=== PATIENT | male | born 1975 | race Caucasian/White ===

== ENCOUNTER 2019-12-26 00:30 | Day surgery (SDC) | payer MEDICARE, SELFPAY ==
[2019-12-26] MEDS: LACTATED RINGERS 1,000 ML 150 ML IV CONT (07:05)
[2019-12-26 07:06] VITALS: BP 137/86; PULSE 89; RESP 16; TEMP 36.4; O2SAT 99; BMI 28.8
--- NOTE | 2019-12-26 07:22 | WPDGICN ---
Assessment and Plan Additional Plan This is a 44-year-old white male patient seen in evaluation at the request of Dr. Mullins. Patient complains of ongoing abdominal pain. Symptoms have worsened recently. He notices pain primarily in the left upper quadrant. Pain occurs intermittently. Over the last several weeks has noticed dark blood in his stools. This has occurred over the last 3-4 weeks. Patient has empirically tried pantoprazole or with the last year with no change in his pain. Past medical history is significant for ADHD. He has a history of a spinal surgery, with a spinal cage 14 years ago. Because of pain in EGD was recommended 1 year ago this has not yet been accomplished. Family history is significant that his sister had breast cancer. Father had diabetes mellitus. He was exposed to Agent [place]. A nephew is had leukemia. Current medications include dextroamphetamine. Gabapentin. Hydrocortisone. Social history is significant for rather frequent alcohol intake. Physical exam reveals Vital Signs to be stable. HEENT exam unremarkable. Lungs are clear to auscultation and percussion. Heart is without murmur or extra sounds. Abdominal exam reveals tenderness perhaps a fullness in the right lower mid abdomen. He is tender in the right upper quadrant. Impression 1. Lower GI bleeding. 2. Epigastric and right upper quadrant pain. 3. Right abdominal fullness. Plan is to evaluate further with colonoscopy an EGD. CBC in complete metabolic panel obtained in the office are unremarkable. Continue trial of pantoprazole appears appropriate for the immediate future. GI Consult Note Consult date/time: 12/26/19 07:22 HPI: Brandon Matute is a 44 year old male [facility] Family History Family History (Updated 06/20/16 @ 23:19 by DOCTOR UNKNOWN) Father Hypertension Family history of diabetes mellitus in first degree relative Cerebrovascular accident Mother Hypertension Family history of rheumatoid arthritis Sibling Hypertension Family history of diabetes mellitus in first degree relative Other Family history of coronary artery disease Family history of malignant neoplasm Social History Social History Smoking status: Never smoker Second hand tobacco smoke exposure: No Alcohol intake: current Meds Home Medications and Allergies Home Medications Medication Instructions Recorded Confirmed Type dextroamphetamine-amphetamine 10 mg PO QNOON 12/20/19 12/20/19 History dextroamphetamine-amphetamine 20 mg PO BID 12/20/19 12/20/19 History gabapentin 900 mg PO HS 12/20/19 12/20/19 History hydrocodone-acetaminophen 1 tablet PO QID 12/20/19 12/20/19 History Allergies Allergy/AdvReac Type Severity Reaction Status Date / Time No Known Allergies Allergy Verified 12/26/19 06:48 Vital Signs Vital Signs - 24 hr 12/26/19 07:06 Temperature 36.4 C Pulse Rate 89 Respiratory Rate 16 Blood Pressure 137/86 Pulse Oximetry 99
--- NOTE | 2019-12-26 07:31 | WPDANESEPPF ---
Anes - Initial Pre Proc Eval Procedure: Operation Date: 12/26/19 08:00 Proposed Procedures p Esophagogastroduodenoscopy & Colonoscopy - Vlad Calderón MD Date/Time: 12/26/19 07:31 Surgeon: Vlad Calderón MD Pre Op Diagnosis: GI bleed, epigastric pain Patient Data Age: 44 Gender: M Height: 5 ft 5 in Weight: 78.4 kg Last Vital Signs Temp 36.4 C 12/26/19 07:06 Pulse 89 12/26/19 07:06 Resp 16 12/26/19 07:06 BP 137/86 12/26/19 07:06 Pulse Ox 99 12/26/19 07:06 Allergies Allergy/AdvReac Type Severity Reaction Status Date / Time No Known Allergies Allergy Verified 12/26/19 06:48 Home Medications Medication Instructions Recorded Confirmed Type dextroamphetamine-amphetamine 10 mg PO QNOON 12/20/19 12/20/19 History dextroamphetamine-amphetamine 20 mg PO BID 12/20/19 12/20/19 History gabapentin 900 mg PO HS 12/20/19 12/20/19 History hydrocodone-acetaminophen 1 tablet PO QID 12/20/19 12/20/19 History Patient hx anesthesia problems: none Family hx anesthesia problems: none PMFSH Past Medical History Medical History (Updated 12/26/19 @ 07:32 by Jonah Bowser MD) Chronic back pain Extensive facial fractures SHIELA (obstructive sleep apnea) Surgical History Surgical History (Updated 12/26/19 @ 07:32 by Jonah Bowser MD) H/O sinus surgery History of lumbar fusion Family History Family History Father Hypertension Family history of diabetes mellitus in first degree relative Cerebrovascular accident Mother Hypertension Family history of rheumatoid arthritis Sibling Hypertension Family history of diabetes mellitus in first degree relative Other Family history of coronary artery disease Family history of malignant neoplasm Social History Social History Smoking status: Never smoker Second hand tobacco smoke exposure: No Alcohol intake: current Anes - Eval Final PreProcedure Day of Procedure 12/26/19 07:31 Patient weight: normal Heart: regular rate and rhythm Lungs: clear to auscultation Airway: Mallampati scale class II Neurological: alert and oriented Last oral intake: >/= 8 hours ASA classification: III Anesthetic plan: proceed Anesthesia type and monitoring: general GIVS and standard monitoring Informed Consent: The patient's anesthetic plan and its attendant risks and benefits were discussed with the patient/family/POA. Questions were solicited and answers provided to the satisfaction of the patient/family/POA.
[2019-12-26] MEDS: BENZOCAINE (*SP) 60 ML SPRAY CAN (HURRICAINE) 1 SPRAY MUCOUS MEM (08:00)
[2019-12-26 08:22] VITALS: BP 114/72; PULSE 84; RESP 16; O2SAT 100
[2019-12-26 08:32] VITALS: BP 119/75; PULSE 73; RESP 18; O2SAT 100
[2019-12-26 08:42] VITALS: BP 111/72; PULSE 73; RESP 18; O2SAT 100
[2019-12-26 08:52] VITALS: BP 117/74; PULSE 74; RESP 18; O2SAT 99
== END 2019-12-26 09:09 | disposition home or self-care (01) ==
PROVIDERS: PCP Family Medicine; Visit Provider Internal Medicine Gastroenterology
PROC: 0DJ08ZZ Inspection of Upper Intestinal Tract, Via Natural or Artificial Opening Endoscopic (ICD-10-PCS; CPT 43235; principal; 2019-12-26 08:00)
DX: R10.13 Epigastric pain (principal); R10.11 Right upper quadrant pain; F90.9 Attention-deficit hyperactivity disorder, unspecified type; G47.33 Obstructive sleep apnea (adult) (pediatric); M54.9 Dorsalgia, unspecified; G89.29 Other chronic pain; Z98.1 Arthrodesis status; Z79.891 Long term (current) use of opiate analgesic
CPT/HCPCS: 43239; J2704; J7120

== ENCOUNTER 2020-01-17 14:32 | Outpatient (CLI) | payer MEDICARE, SELFPAY ==
[2020-01-17 14:58] LABS: Hematocrit 46.5 % (42.0-52.0); Mean Corpuscular HGB Conc 34.4 g/dl (32-36); Mean Corpuscular Hemoglobin 30.5 pg (26-34); Mean Corpuscular Volume 88.7 fl (80-100); Mean Platelet Volume 8.9 fl (7.4-10.4); Platelet Count Result 245 k/mm3 (150-375); Red Blood Count 5.24 M/mm3 (4.6-6.20); Red Cell Distribution Width 11.9 % (11.5-14.5); White Blood Count 7.6 K/mm3 (4.5-10.0)
[2020-01-17 15:10] LABS: Alanine Aminotransferase 70 U/L (4-50); Albumin Level 4.7 g/dL (3.5-5.1); Alkaline Phosphatase 56 U/L (38-126); Aspartate Amino Transferase 51 U/L (17-59); Bilirubin,Total 0.6 mg/dL (0.2-1.3); Blood Urea Nitrogen 14 mg/dL (9-20); Calcium 9.7 mg/dL (8.4-10.2); Carbon Dioxide 30 mmol/L (22-30); Chloride 99 mmol/L (98-107); Estimated Glomerular Filt Rate 44; Glucose 92 mg/dL (75-110); Potassium 4.1 mmol/L (3.4-5.0); Sodium 140 mmol/L (137-145)
== END 2020-01-17 14:33 | disposition home or self-care (01) ==
PROVIDERS: PCP Family Medicine; Visit Provider Internal Medicine Gastroenterology
DX: K92.2 Gastrointestinal hemorrhage, unspecified (principal)
CPT/HCPCS: 36415; 80053; 85027

== ENCOUNTER 2020-01-18 07:34 | Outpatient (CLI) | payer MEDICARE, SELFPAY ==
--- NOTE | ~2020-01-18 | US_ITS ---
EXAMINATION: US right upper quadrant DATE: 01/18/2020 08:24 INDICATION: Abdominal pain. TECHNIQUE: Multiple grayscale and Doppler ultrasound images of the abdomen were obtained. COMPARISON: CT abdomen and pelvis 01/13/2019 FINDINGS: The visualized portions of the head and body of the pancreas are normal. The liver is yobani l without focal lesion. There is normal flow in main portal vein. The gallbladder is normal in size. No gallstones or gallbladder wall thickening. There was no sonographic Antoine sign. The common duct i s normal and measures 4 mm. IMPRESSION: 1. Normal right upper quadrant ultrasound. Reviewed, dictated and finalized at location A. 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
== END 2020-01-18 07:35 | disposition home or self-care (01) ==
LOC: ANHIMG 07:35
PROVIDERS: PCP Family Medicine; Visit Provider Nurse Practitioner Family
DX: R10.9 Unspecified abdominal pain (principal)
CPT/HCPCS: 76705

== ENCOUNTER 2020-02-16 07:38 | Outpatient (CLI) | payer MEDICARE, SELFPAY ==
--- NOTE | ~2020-02-16 | US_ITS ---
US abdomen complete EXAMINATION: US Abdomen Complete INDICATION: Abdominal pain PROCEDURE: Realtime High Resolution abdomen ultrasound. COMPARISON: 01/18/2020 FINDINGS: Gallbladder within normal limits. No gallstones, pericholecystic fluid, gallbladder wall t hickening or biliary dilatation. Common bile duct measures 4 mm. Liver echotexture within normal limits without focal mass. Pancreas within normal limits. Pancreati c tail is obscured by bowel gas. Spleen is unremarkeable. Renal echotexture is within normal limits bilaterally without hydronephrosis, contour deforming mass or renal stone. Right kidney measures 11.6 cm. Left kidney measures 10.4 cm. Visualized aspects of the aorta and IVC are within normal limits. Portal vein is patent. No sonograph ic Antoine's sign indicated by the technologist. IMPRESSION: 1: Normal abdominal ultrasound. Reviewed, dictated and finalized at location A.
== END 2020-02-16 07:39 | disposition home or self-care (01) ==
LOC: ANHIMG 07:45
PROVIDERS: PCP Family Medicine; Visit Provider Family Medicine
DX: R10.9 Unspecified abdominal pain (principal)
CPT/HCPCS: 76700

== ENCOUNTER 2020-02-23 07:25 | Outpatient (CLI) | payer MEDICARE, SELFPAY ==
--- NOTE | ~2020-02-23 | CT_ITS ---
EXAMINATION: CT abdomen pelvis w con DATE: 02/23/2020 08:20 INDICATION: Bloating TECHNIQUE: Computed tomography (CT) of the abdomen and pelvis was performed with 100 cc Omnipaque 350 intravenous contrast. Automated exposure control and iterative reconstruction technique were employe d. Exam dose: 501.75 mGy-cm total exam DLP. COMPARISON: 01/13/2019 CT abdomen pelvis and 02/16/2020 abdominal ultrasound examinations FINDINGS: The lung bases are clear. Normal heart size. No pericardial or pleural effusion. The liver, gallbladder, bile ducts, pancreas, pancreatic duct, spleen, and adrenal glands appear norm al. Approximately 1 cm lower pole left renal cyst. The kidneys are otherwise unremarkable. No urinary tract calculus or hydroureteronephrosis. The urinary bladder, prostate gland and seminal vesicles ap pear normal. Normal caliber of the abdominal aorta. No intraperitoneal or retroperitoneal or pelvic mass lesion or adenopathy or ascites. No bowel obstruction or intraperitoneal free air. Small fat-containing umbilical hernia. Moderately severe degenerative disc disease and mild retrolisthesis at L3-4. Status post interbody spinal fusion at L4-5 and L5-S1. No suspicious osteolytic or osteoblastic lesions. IMPRESSION: Approximately 1 cm left renal cyst Reviewed, dictated and finalized at Location A. Reviewed, dictated and finalized at location B.
[2020-02-23 08:15] LABS: Estimated Glomerular Filt Rate > 60
== END 2020-02-23 07:26 | disposition home or self-care (01) ==
LOC: ANHIMG 07:25
PROVIDERS: PCP Family Medicine; Visit Provider Family Medicine
DX: R14.0 Abdominal distension (gaseous) (principal); N28.1 Cyst of kidney, acquired; M51.36 Other intervertebral disc degeneration, lumbar region
CPT/HCPCS: 36415; 74177; Q9967

== ENCOUNTER 2020-08-16 12:43 | Outpatient (NON) | payer MEDICARE, SELFPAY ==
[2020-08-17 14:16] LABS: SARS-CoV-2 RNA PCR Negative
== END 2020-08-16 12:44 ==
PROVIDERS: PCP Family Medicine; Visit Provider Family Medicine
DX: Z20.828 Contact with and (suspected) exposure to other viral communicable diseases (principal)
CPT/HCPCS: 87635; C9803; U0003

== ENCOUNTER 2021-01-28 09:38 | Outpatient (CLI) | payer MEDICARE, SELFPAY ==
--- NOTE | ~2021-01-28 | MR_ITS ---
EXAMINATION: MR pituitary wo/w con EXAM DATE: 01/28/2021 11:17 INDICATION: Hypogonadism in male. TECHNIQUE: Magnetic resonance imaging (MRI) of the brain/brain stem obtained without contrast. Sagit hitesh T1, axial diffusion, gradient echo (T2*), T1, T2, FLAIR sequences obtained. Patient was then inj ected with 15 cc intravenous Multihance contrast. Axial and coronal postcontrast T1 weighted sequence s obtained. A pituitary protocol was utilized including dynamic imaging through the pituitary gland d uring intravenous injection of contrast. There are no prior studies for comparison. FINDINGS: The pituitary gland is normal in size and confined to the sella turcica. Suprasellar vern on normal in appearance. The optic chiasm normal. Infundibulum is midline. No definite pituitary m icroadenoma identified. Please note small microadenomas can cause endocrine abnormalities but are no t always identified by imaging even using dedicated pituitary protocol. This does exclude macroadeno ma or need for surgical management. There are no areas of restricted diffusion to suggest acute infarction. There is no acute hemorrhage seen on the T2*, a hemosiderin sensitive sequence. No intraparenchymal brain mass. The ventricles a re normal in size. There are no extra-axial collections. Flow voids are seen in the cerebral arteri es on the T2-weighted sequences consistent with their expected patency. The orbits are unremarkable. Soft tissue is unremarkable. There are no areas of abnormal enhancement on the post contrast imag es. IMPRESSION: 1. Unremarkable brain, pituitary exam. Reviewed, dictated and finalized at location B. 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
[2021-01-28 10:37] LABS: Estimated Glomerular Filt Rate > 60
== END 2021-01-28 09:39 | disposition home or self-care (01) ==
PROVIDERS: PCP Family Medicine; Visit Provider Urology
DX: E29.1 Testicular hypofunction (principal)
CPT/HCPCS: 70553; A9577

== ENCOUNTER 2021-07-09 08:37 | Outpatient (CLI) | payer MEDICARE, SELFPAY ==
--- NOTE | ~2021-07-09 | XR_ITS ---
EXAMINATION: XR cervical spine 4-5V DATE: 07/09/2021 09:09 INDICATION: Pain radiating down the left arm. TECHNIQUE: 4 views of cervical spine were obtained. COMPARISON: Cervical spine radiographs 08/11/2008 FINDINGS: There is 9 degrees levocurvature of upper thoracic spine. There is 2 mm retrolisthesis of C 5 on C6. There is kyphosis of cervical spine. Vertebral body heights are normal. There is moderately decreased disc height at C4-C5 and severely decreased disc height at C5-C6 and C6-C7. There is severe bilateral uncovertebral joint osteoarthritis from C4-C5 through C6-C7. There is multilevel mild face t joint osteoarthritis. There is mild central canal stenosis at C4-C5, C5-C6, and C6-C7. No preverteb ral soft tissue swelling. IMPRESSION: 1. Severe cervical spondylosis, worsened from 08/11/2008. Reviewed, dictated and finalized at location B.
--- NOTE | ~2021-07-09 | XR_ITS ---
XR shoulder LT min 2V 07/09/2021 09:09 Indication: Left shoulder pain Procedure: 4 views left shoulder Comparison: No prior studies for comparison. Findings: No fracture, subluxation or dislocation. There is mild degenerative change of the acromiocl avicular joint. No significant soft tissue abnormality. Surrounding osseous structures are unremarkab le. Impression: 1: Mild osteoarthritis of the left acromioclavicular joint. Reviewed, dictated and finalized at location A. Impression: 1: Mild osteoarthritis of the left acromioclavicular joint.
== END 2021-07-09 08:38 | disposition home or self-care (01) ==
PROVIDERS: PCP Family Medicine; Visit Provider Nurse Practitioner
DX: M79.602 Pain in left arm (principal); M47.812 Spondylosis without myelopathy or radiculopathy, cervical region; M19.012 Primary osteoarthritis, left shoulder
CPT/HCPCS: 36415; 72050; 73030; 80061; 86769

== ENCOUNTER 2021-07-09 09:15 | Outpatient (CLI) | payer MEDICARE, SELFPAY ==
[2021-07-09 10:39] LABS: Cholesterol 119 mg/dL (0-200); HDL Direct 37 mg/dL; Triglycerides 98 mg/dL (<150)
[2021-07-09 10:49] LABS: LDL Cholesterol Direct 60 mg/dL
[2021-07-09 11:20] LABS: SARS-CoV-2 IgG Reactive (NonReactive)
== END 2021-07-09 09:16 | disposition home or self-care (01) ==
PROVIDERS: PCP Family Medicine; Visit Provider Family Medicine
DX: E78.5 Hyperlipidemia, unspecified (principal)
CPT/HCPCS: 36415; 80061; 86769

== ENCOUNTER 2021-08-06 10:40 | Outpatient (CLI) | payer MEDICARE, SELFPAY ==
--- NOTE | ~2021-08-06 | MR_ITS ---
EXAMINATION: MR shoulder LT wo con DATE: 08/06/2021 11:23 INDICATION: Left shoulder pain TECHNIQUE: Magnetic resonance imaging (MRI) of the left shoulder was performed without intravenous co ntrast. Sequences included axial PD-weighted FS FSE, coronal oblique PD-weighted FS FSE, coronal obli que T2-weighted FS FSE, sagittal PD-weighted FS FSE, and sagittal T1-weighted SE. COMPARISON: Left shoulder radiographs dated 07/09/2021 FINDINGS: Coracoacromial arch: The acromion undersurface is curved in morphology (type II). The coracoacromial ligament is normal. M ild acromioclavicular osteoarthritis. Rotator cuff: Mild supraspinatus and infraspinatus tendinopathy. There is a moderate-sized articular sided tear whi ch involves the posterior two thirds of the supraspinatus tendon and the anterior half of the infrasp inatus tendon. The tear is more severe at the supraspinatus tendon where it involves greater than 50% of the tendon thickness, in places likely full or near full-thickness. Intrasubstance ganglion cyst along the myotendinous junction within the distal infraspinatus muscle belly with fluid tracking 3.6 cm medially from the greater tuberosity footplate along a longitudinal split tear. The cyst measures up to 6 x 4 mm in maximal transaxial dimensions at the level of the base of the acromion. The teres m inor tendon is normal. Mild to moderate subscapularis tendinopathy without discrete tear. No asymmetr ic rotator cuff muscle atrophy. There is however feathery muscular edema throughout the infraspinatus muscle belly consistent with muscle strain. Biceps tendon, glenoid labrum and glenohumeral cartilage: Mild tendinopathy without discrete tear at the junction of the intra-articular and extra-articular po rtions of the long head biceps tendon. There is a tear at the 12:00-9:00 position of the posterior bejarano perior glenoid labrum. Partial-thickness cartilage loss with minimal surface irregularity along the p osterior and posterosuperior aspect of the humeral head. Glenoid cartilage is normal. Fluid: Small amount of fluid along the long head biceps tendon sheath which is disproportionate to the physi ologic amount of fluid in the glenohumeral joint space.No loose osteochondral bodies. Small amount of fluid in the subacromial/subdeltoid bursa consistent with mild bursitis. Bones: Bone alignment is normal. No fracture or pathologic marrow replacing process. IMPRESSION: 1. Moderate-sized articular sided tear of the supraspinatus and infraspinatus tendons, severe at the supraspinatus tendon whether there may be a small full-thickness component and mild to moderate sever ity at the infraspinatus. 2. Superior to posterior glenoid labral tear. 3. Mild bicipital tenosynovitis with mild tendinopathy without discrete tear of the long head biceps tendon. 4. Mild acromioclavicular and minimal glenohumeral osteoarthritis. Reviewed, dictated and finalized at location A. IMPRESSION: 1. Moderate-sized articular sided tear of the supraspinatus and infraspinatus t endons, severe at the supraspinatus tendon whether there may be a small full-th ickness component and mild to moderate severity at the infraspinatus. 2. Superior to posterior glenoid labral tear. 3. Mild bicipital tenosynovitis with mild tendinopathy without discrete tear of the long head biceps tendon. 4. Mild acromioclavicular and minimal glenohumeral osteoarthritis.
== END 2021-08-06 10:41 | disposition home or self-care (01) ==
PROVIDERS: PCP Family Medicine; Visit Provider Nurse Practitioner
DX: S43.52XA Sprain of left acromioclavicular joint, initial encounter (principal); S46.112A Strain of muscle, fascia and tendon of long head of biceps, left arm, initial encounter; M19.012 Primary osteoarthritis, left shoulder; M75.102 Unspecified rotator cuff tear or rupture of left shoulder, not specified as traumatic
CPT/HCPCS: 73221

== ENCOUNTER → 2021-08-31 00:28 | Outpatient (CLI) | payer MEDICARE, SELFPAY ==
[2021-08-31 18:06] LABS: SARS-CoV-2 RNA PCR Negative
== END ==
PROVIDERS: PCP Family Medicine; Visit Provider Orthopaedic Surgery
DX: Z01.812 Encounter for preprocedural laboratory examination (principal); Z20.822 Contact with and (suspected) exposure to COVID-19
CPT/HCPCS: C9803; U0003; U0005

== ENCOUNTER 2021-09-02 08:25 | Outpatient (CLI) | payer MEDICARE, SELFPAY ==
--- NOTE | 2021-09-02 08:15 | ECG_ITS ---
Measurements Intervals Cope Rate: 89 P: 24 OR: 164 QRS: -6 QRSD: 98 T: 35 QT: 342 QTc: 418 Interpretive Statements SINUS RHYTHM DELAYED PRECORDIAL R/S TRANSITION BASELINE ARTIFACT- I, II, III, AVR, AVL, AVF, V1-V6 BORDERLINE ECG Electronically Signed On 09-02-2021 14:30:08 CDT by Andrzej Cardozo D.O.
== END 2021-09-02 08:26 | disposition home or self-care (01) ==
LOC: ANHSURGERY 08:30
PROVIDERS: PCP Family Medicine; Visit Provider Orthopaedic Surgery
DX: I10 Essential (primary) hypertension (principal); Z01.818 Encounter for other preprocedural examination; R94.31 Abnormal electrocardiogram [ECG] [EKG]
CPT/HCPCS: 93005

== ENCOUNTER 2021-09-04 01:06 | Day surgery (SDC) | payer MEDICARE, SELFPAY ==
[2021-08-27 14:20] VITALS: BMI 29.1
[2021-09-04] VITALS (11 sets, daily range): BP systolic 99–130; BP diastolic 60–88; PULSE 80–98; RESP 14–20; TEMP 36.7; O2SAT 95–100
--- NOTE | 2021-09-04 07:24 | WPDHPUPDATE1 ---
History and Physical Update Update Date/Time: 09/04/21 07:24 History and Physical has been reviewed, including an updated exam of the patient. There are NO changes in the patient's condition. Risks, benefits, and alternatives have been discussed and questions answered. Patient agrees to proceed with procedure.
[2021-09-04] MEDS: LACTATED RINGERS 1,000 ML 30 ML IV CONT ×3 (12:09→16:39)
[2021-09-04] MEDS: CELECOXIB 200 MG CAPSULE PO (12:12)
[2021-09-04] MEDS: ACETAMINOPHEN 500 MG TABLET 1000 MG PO (12:12)
--- NOTE | 2021-09-04 12:43 | WPDANESEPPF ---
Anes - Initial Pre Proc Eval Procedure: Operation Date: 09/04/21 13:30 Proposed Procedures p Open Rotator Cuff Repair Left Shoulder - Leon Garcia MD Date/Time: 09/04/21 12:43 Surgeon: Leon Garcia MD Pre Op Diagnosis: left rotator cuff tear Patient Data Age: 45 Gender: M Height: 1.65 m Weight: 79.5 kg Last Vital Signs Temp 36.7 C 09/04/21 11:52 Pulse 94 09/04/21 11:52 Resp 20 09/04/21 11:52 BP 125/80 09/04/21 11:52 Pulse Ox 99 09/04/21 11:52 Allergies Allergy/AdvReac Type Severity Reaction Status Date / Time No Known Allergies Allergy Verified 09/04/21 11:59 Home Medications Medication Instructions Recorded Confirmed Type dextroamphetamine-amphetamine 10 mg PO QNOON 12/20/19 09/04/21 History dextroamphetamine-amphetamine 20 mg PO BID 12/20/19 09/04/21 History lisinopril 2.5 mg tablet 2.5 mg PO DAILY 08/22/21 09/04/21 History multivitamin 1 tablet PO DAILY 08/27/21 09/04/21 History Patient hx anesthesia problems: none Family hx anesthesia problems: none Results Review: All pre-operative results and documents have been reviewed as part of the pre-operative evaluation. [facility] Past Medical History Medical History Chronic back pain Extensive facial fractures GERD (gastroesophageal reflux disease) Hypertension SHIELA (obstructive sleep apnea) Surgical History Surgical History H/O sinus surgery History of lumbar fusion Family History Family History Father Hypertension Family history of diabetes mellitus in first degree relative Cerebrovascular accident Mother Hypertension Family history of rheumatoid arthritis Sibling Hypertension Family history of diabetes mellitus in first degree relative Other Family history of coronary artery disease Family history of malignant neoplasm Social History Social History Smoking packs per day: 0.5 Smoking cigarettes per day: 10.0 Years smoked: 2 Smoking pack-years: 1.00 Smoking status: Former smoker Second hand tobacco smoke exposure: No Smoking end date: 11/23/02 Alcohol intake: current Drinks per week: 4 Substance use: current Substance use type: marijuana Other substance usage details: EDIBLES Last use: 08/25/21 Living arrangements: alone Gender identity (if verbalized by the patient): Male Spiritual care concerns: No Anes - Eval Final PreProcedure Day of Procedure 09/04/21 12:43 Patient weight: overweight Heart: regular rate and rhythm Lungs: clear to auscultation Airway: Mallampati scale class II Neurological: alert and oriented Last oral intake: >/= 8 hours ASA classification: III Emergent: no Anesthetic plan: proceed Anesthesia type and monitoring: general ETT and standard monitoring Results Review: All pre-operative results and documents have been reviewed as part of the pre-operative evaluation. Informed Consent: The patient's anesthetic plan and its attendant risks and benefits were discussed with the patient/family/POA. Questions were solicited and answers provided to the satisfaction of the patient/family/POA.
[2021-09-04] MEDS: ceFAZolin 2 GM/D5W 50 ML 2 GM/50 ML BAG IVPB (13:11)
--- NOTE | 2021-09-04 13:26 | WPDANESPNB ---
Anes - Peripheral Nerve Block Date/Time: 09/04/21 13:26 I have discussed with the patient/family/POA the placement of a peripheral nerve block for post-operative pain management, including associated risks, benefits, complications, and side effects. Alternative methods of post-operative analgesia were detailed. Questions were solicited and answers provided to the satisfaction of the patient/family/POA. Time-Out: A pre-procedural Time-Out was completed immediately before starting the procedure and confirmed: Patient Identification, Site, Procedure, Patient Position and the Availability of Requisite Equipment. Clinical Indications: Acute post-operative pain management requested by the operative surgeon. Nerve Block Insertion Note Anes-nerve block: interscalene left Patient position: supine Needle: 22 gauge, stimulating, insulated echogenic needle. Needle length: 50 mm Technique: nerve stimulation lost at (mA) (0.3) and ultrasound Injectate: bupivacaine 0.5% with epi 5 mcg/ml (30ml no epi) and dexamethasone (mg) (4) Observations: tolerated well Complications: none Procedure start time:: 1302 Procedure end time:: 1310
--- NOTE | 2021-09-04 14:53 | W.PM.PROC2 ---
Procedure Note - Detailed Date of Procedure 09/04/21 Pre-op Diagnosis left rotator cuff tear Post-op Diagnosis same Procedure Performed REPAIR RIGHT ROTATOR CUFF WITH DISTAL CLAVICLE RESECTION Surgeon Leon Garcia MD Anesthesia general Description of Procedure THE PATIENT WAS TAKEN TO THE OPERATING ROOM AND THEN INTUBATED AND PLACED IN THE BEACH CHAIR POSITION. THE LEFT UPPER EXTREMITY WAS PREPPED AND DRAPED IN THE NORMAL STERILE FASHION. AN INCISION WAS MADE IN BETWEEN THE YOUNG-LATERAL ACROMION AND THE AC JOINT. THERE WAS A LARGE DEFORMITY TO THE AC JOINT. THE FASCIA WAS IDENTIFIED. THE AC JOINT WAS IDENTIFIED AND THE CAPSULE INCISED. THERE WAS SEVERE DJD TO THE AC JOINT. A DISTAL CLAVICLE EXCISION WAS MADE. THE WOUND WAS WASHED AND THE CAPSULE REPAIRED. NEXT A MINI OPEN INCISION WAS MADE THROUGH THE DELTOID MUSCLE EXPOSING THE SUBACROMIAL SPACE. A LIMITED ACROMIOPLASTY WAS PREFORMED. THE ROTATOR CUFF WAS IDENTIFIED. THERE WAS A LARGE FULL THICKNESS TEAR. IT MEASURED APPROXIMATELY 3 CM X 3 CM AND THE TEAR WAS ACTUALLY A COMPLETE RUPTURE. THE BICEPS TENDON WAS RETRACTED AND WAS STABLE IT WAS SCARRED IN. THE GREATER TUBEROSITY WAS DEBRIDED TO BLEEDING BONE. 2 ARTHREX 5.5 SUTURE ANCHORS WERE PLACED IN TO GOOD BONE AND HAD VERY GOOD BITES. PRINCE-LUIS TYPE REPAIRS WERE DONE TO THE ROTATOR CUFF AND THERE WAS GOOD APPROXIMATION TO THE GREATER TUBEROSITY. THE REPAIR WAS EXCELLENT. THE SUBSCAPULARIS TENDON WAS INTACT. THERE WAS NO IMPINGEMENT ON THE REPAIR FROM THE ACROMION WITH RANGE OF MOTION. THE WOUND WAS IRRIGATED WITH COPIOUS AMOUNTS OF ANTIBIOTIC SOLUTION. THE DELTOID MUSCLE WAS REPAIRED WITH #2 FIBER WIRE AND 0 VICRYL SUTURE. THE SUBCUTANEOUS LAYER WAS APPROXIMATED WITH 2-0 VICRYL. THE SKIN WAS APPROXIMATED WITH 3-0 QUIL AND DERMABOND. STERILE DRESSING WAS APPLIED. PATIENT WAS EXTUBATED. Estimated Blood Loss 20 Complications No immediate complications Condition stable Disposition PACU
--- NOTE | 2021-09-04 15:49 | SUR.PHASEI ---
1549: Simple mask removed.
--- NOTE | 2021-09-04 15:52 | SUR.PHASEI ---
Patient just wants RN to contact son when ready for pick-up.
[2021-09-04] MEDS: KETOROLAC 15 MG/ML VIAL (*BKC) IV PUSH ×2 (16:41→17:36)
--- NOTE | 2021-09-04 18:20 | SUR.PHASEII ---
PATIENT ASSISTED TO DRESS TO HOLD LEFT ARM BY 2 RN'S. SPLINT INTACT TO LEFT ARM.
== END 2021-09-04 18:00 | disposition home or self-care (01) ==
PROVIDERS: PCP Family Medicine; Visit Provider Orthopaedic Surgery
PROC: (CPT 23420; principal; 2021-09-04 13:30)
DX: S46.012A Strain of muscle(s) and tendon(s) of the rotator cuff of left shoulder, initial encounter (principal); W10.9XXA Fall (on) (from) unspecified stairs and steps, initial encounter; M19.012 Primary osteoarthritis, left shoulder; G89.18 Other acute postprocedural pain; I10 Essential (primary) hypertension; K21.9 Gastro-esophageal reflux disease without esophagitis; G47.33 Obstructive sleep apnea (adult) (pediatric); Z87.891 Personal history of nicotine dependence; F12.90 Cannabis use, unspecified, uncomplicated
CPT/HCPCS: 23120; 23410; 64415; A9270; C1713; J0690; J1100; J1885; J2250; J2405; J2704; J3010; J7120

== ENCOUNTER 2024-03-12 08:00 | Outpatient (CLI) | payer MEDICARE, SELFPAY ==
[2024-03-12 08:20] LABS: Basophils Absolute Auto 0.1 K/mm3 (0.0-0.1); Basophils Percent Auto 0.9 % (0.2-1.2); Eosinophils Absolute Auto 0.3 K/mm3 (0-0.3); Eosinophils Percent Auto 3.7 % (0-4.4); Hematocrit 49.4 % (42.0-52.0); Hemoglobin 16.6 g/dL (14.0-18.0); Immature Granulocyte Absolute 0.02 K/mm3 (0.00-0.031); Immature Granulocyte Percent A 0.2 % (0-0.5); Lymphocytes Absolute Auto 1.73 K/mm3 (0.9-3.2); Lymphocytes Percent Auto 21.3 % (18.3-44.2); Mean Corpuscular HGB Conc 33.6 g/dl (32-36); Mean Corpuscular Hemoglobin 30.9 pg (26-34); Mean Platelet Volume 8.8 fl (7.4-10.4); Monocytes Absolute Auto 0.7 K/mm3 (0.1-0.6); Monocytes Percent Auto 8.9 % (2.6-8.5); Neutrophils Absolute Auto 5.3 K/mm3 (1.3-6.7); Platelet Count Result 277 k/mm3 (150-375); Red Blood Count 5.37 M/mm3 (4.6-6.20); Red Cell Distribution Width 11.9 % (11.5-14.5); White Blood Count 8.1 K/mm3 (4.5-10.0)
[2024-03-12 08:31] LABS: Alanine Aminotransferase 33 U/L (6-50); Albumin Level 4.6 g/dL (3.5-5.1); Alkaline Phosphatase 60 U/L (38-126); Anion Gap 5 mmol/L (4-12); Aspartate Amino Transferase 48 U/L (17-59); Bilirubin,Total 0.7 mg/dL (0.2-1.3); Blood Urea Nitrogen 9 mg/dL (9-20); Calcium 10.1 mg/dL (8.4-10.2); Carbon Dioxide 33 mmol/L (22-30); Chloride 102 mmol/L (98-107); Cholesterol 167 mg/dL (0-200); Estimated Glomerular Filt Rate > 60; Glucose 122 mg/dL (65-110); HDL Direct 38 mg/dL; Potassium 4.8 mmol/L (3.4-5.0); Sodium 140 mmol/L (137-145); Triglycerides 99 mg/dL (<150)
[2024-03-12 08:43] LABS: LDL Cholesterol Direct 113 mg/dL
== END 2024-03-12 08:01 | disposition home or self-care (01) ==
LOC: ANHLAB 08:05
PROVIDERS: PCP Family Medicine; Visit Provider Registered Nurse
DX: E78.5 Hyperlipidemia, unspecified (principal); I10 Essential (primary) hypertension
CPT/HCPCS: 36415; 80053; 80061; 85025

== ENCOUNTER 2024-03-28 10:47 | Outpatient (CLI) | payer MEDICARE, SELFPAY ==
--- NOTE | ~2024-03-28 | XR_ITS ---
Left Hand Technique: PA, oblique, and lateral views were obtained. Clinical History: Pain Findings: No acute fracture or dislocation is seen. Osseous alignment is anatomic. Joint spaces are p reserved. Soft tissues are unremarkable. Impression: Unremarkable left hand. Reviewed, dictated and finalized at location M. Impression: Unremarkable left hand.
== END 2024-03-28 10:48 | disposition home or self-care (01) ==
LOC: ANHIMG 10:52
PROVIDERS: PCP Family Medicine; Visit Provider Physician Assistant Surgical
DX: M79.642 Pain in left hand (principal)
CPT/HCPCS: 73130

== ENCOUNTER 2024-07-13 13:09 | Outpatient (CLI) | payer MEDICARE, SELFPAY ==
--- NOTE | 2024-07-13 14:30 | NEURO_ITS ---
Impression: # Complains of left hand numbness. Non-diabetic. # Moderate left Carpal Tunnel Syndrome. # No ulnar neuropathy. # Needle/EMG exam mildly abnormal in left APB. Nerve Conduction Studies Anti Sensory Summary Table Stim Site NR Peak (ms) P-T Amp (?V) Site1 Site2 Delta-P (ms) Dist (cm) Beto (m/s) Left Median Anti Sensory (2-3nd Digit) Wrist 5.6 11.6 Wrist 2-3nd Digit 5.6 14.0 25 Wrist 5.7 17.4 Wrist 2-3nd Digit 5.6 14.0 25 Left Radial Anti Sensory (Base 1st Digit) Wrist 1.9 36.3 Wrist Base 1st Digit 1.9 0.0 Left Ulnar Anti Sensory (5th Digit) Wrist 2.7 35.1 Wrist 5th Digit 2.7 14.0 52 Motor Summary Table Stim Site NR Onset (ms) O-P Amp (mV) Site1 Site2 Delta-0 (ms) Dist (cm) Beto (m/s) Left Median Motor (Abd Poll Brev) Wrist 5.4 4.5 Elbow Wrist 5.8 30.0 52 Elbow 11.2 4.7 Left Ulnar Motor (Abd Dig Minimi) Wrist 2.5 7.4 A Elbow Wrist 5.2 31.0 60 A Elbow 7.7 6.2 F Wave Studies NR F-Lat (ms) L-R F-Lat (ms) Left Median (Mrkrs) (Abd Poll Brev) 32.98 Left Ulnar (Mrkrs) (Abd Dig Min) 29.53 EMG Side Muscle Nerve Root Ins Act Fibs Amp Dur Recrt Comment Left 1stDorInt Ulnar C8-T1 Nml Nml Nml Nml Nml Left Ext Indicis Radial (Post Int) C7-8 Nml Nml Nml Nml Nml Left Ext Digitorum Radial (Post Int) C7-8 Nml Nml Nml Nml Nml Left BrachioRad Radial C5-6 Nml Nml Nml Nml Nml Left PronatorTeres Median C6-7 Nml Nml Nml Nml Nml Left Abd Poll Brev Median C8-T1 Nml Nml Nml >12ms +1 Left ABD Dig Min Ulnar C8-T1 Nml Nml Nml Nml Nml MTDD
== END 2024-07-13 13:10 | disposition home or self-care (01) ==
PROVIDERS: PCP Family Medicine; Visit Provider Physician Assistant Surgical
DX: M79.642 Pain in left hand (principal); G56.02 Carpal tunnel syndrome, left upper limb
CPT/HCPCS: 95886; 95909

== ENCOUNTER 2025-01-19 06:09 | Day surgery (SDC) | payer MEDICARE, SELFPAY ==
--- NOTE | 2025-01-18 15:01 | WPDANESEPPF ---
Anes - Initial Pre Proc Eval Procedure: Operation Date: 01/19/25 09:00 Proposed Procedures p Left Endoscopic Carpal Tunnel Release, Possible Open Carpal Tunnel Release - Calixto Griffiths MD Date/Time: 01/18/25 15:01 Surgeon: Calixto Griffiths MD Pre Op Diagnosis: Left Carpal Tunnel Syndrome Patient Data Age: 49 Gender: M Height: 1.65 m Weight: 82 kg Allergies Allergy/AdvReac Type Severity Reaction Status Date / Time No Known Allergies Allergy Verified 01/19/25 07:42 Home Medications ?Medication ?Instructions ?Recorded ?Confirmed ?Type lisinopril 2.5 mg tablet 2.5 mg PO DAILY 08/22/21 01/19/25 History multivitamin 1 tablet PO DAILY 08/27/21 01/19/25 History dextroamphetamine-amphetamine 10 10 mg PO TID 11/06/21 01/19/25 History mg tablet (Adderall) gabapentin 300 mg capsule 900 mg PO HS 12/29/24 01/19/25 History Patient hx anesthesia problems: none Family hx anesthesia problems: none Results Review: All pre-operative results and documents have been reviewed as part of the pre-operative evaluation. [facility] Past Medical History Medical History (Updated 03/28/24 @ 10:46 by Charlee Kirkpatrick PA-C) Hypertension GERD (gastroesophageal reflux disease) Extensive facial fractures SHIELA (obstructive sleep apnea) Chronic back pain Surgical History Surgical History (Updated 11/06/21 @ 13:10 by Tosha Tapia MA) History of surgery on right wrist 2004 History of facial surgery 2004 S/P rotator cuff repair H/O sinus surgery History of lumbar fusion 2007 Family History Family History (Updated 11/06/21 @ 13:11 by Tosha Tapia MA) Father Hypertension Family history of diabetes mellitus in first degree relative Cerebrovascular accident Mother Hypertension Family history of rheumatoid arthritis Sibling Hypertension Family history of diabetes mellitus in first degree relative Other Diabetes mellitus Family history of cancer Family history of coronary artery disease Family history of high cholesterol Heart disease Social History Social History (Updated 11/06/21 @ 13:13 by Tosha Tapia MA) Smoking packs per day: 0.5 Smoking cigarettes per day: 10.0 Years smoked: 2 Smoking pack-years: 1.00 Smoking status: Former smoker Tobacco type: cigarettes Second hand tobacco smoke exposure: Yes Smoking end date: 11/23/03 Alcohol intake: current Drinks per week: 6 Substance use: current Substance use type: does not use Other substance usage details: EDIBLES Living arrangements: with family Occupation/Education: other Additional occupation/education comments: Disabled Gender identity (if verbalized by the patient): Male Spiritual care concerns: No Anes - Eval Final PreProcedure Day of Procedure Patient weight: overweight Heart: regular rate and rhythm Lungs: clear to auscultation Airway: Mallampati scale class II Neurological: alert and oriented Last oral intake: >/= 8 hours ASA classification: III Emergent: no Anesthetic plan: proceed Anesthesia type and monitoring: general GIVS and standard monitoring
--- NOTE | 2025-01-19 06:47 | WPDHPUPDATE1 ---
History and Physical Update Update Date/Time: 01/19/25 06:47 Patient seen and examined in pre-operative holding area. No interval change in medical history or symptoms. Patient recalls previous discussion of benefits and alternatives to procedure. Continues to desire to proceed with left endoscopic possible open carpal tunnel release . Reviewed procedure, post-op expectations and risks including but not limited to bleeding, infection, injury to tendon/nerve/vessel, decreased hand function, stiffness, RSD, no change or worsening of symptoms. I discussed the possible use of assistants and their participation in the case. Patient stated understanding and signed the consent form wishing to proceed.
--- NOTE | 2025-01-19 06:47 | W.PM.PROC2 ---
Procedure Note - Detailed Date of Procedure 01/19/25 Pre-op Diagnosis Left Carpal Tunnel Syndrome Post-op Diagnosis Same Procedure Performed left ectr Surgeon Calixto Griffiths MD [employer] sly calhoun pa-c Anesthesia MAC Description of Procedure INFORMED CONSENT: The patient was seen and examined and marked in the pre-op area.? The patient signed the consent form. PROCEDURE IN DETAIL:The patient taken back to OR on the stretcher in supine position. Time out performed with anesthesia, surgeon and staff agreeing on patient's name site and surgery to be performed SCDs were placed on the lower extremities and inflated. A tourniquet was placed on {left} upper extremity and antibiotics given IV After anesthesia administered sedation I injected {6}cc 1%lido with epi and 0.5% marcaine plain at the operative site The?{left upper extremity}?was prepped and draped in sterile fashion the??{left upper extremity} was? exsanguinated with Esmarch bandage and tourniquet inflated to 250mmHg I made a transverse incision in the {left} volar distal wrist crease through skin and dermis with 15 blade scalpel.? Littler scissors spread down to antebrachial fascia. A small incision was made in antebrachial fascia allowing access to Carpal tunnel. I proceeded with sequential dilation staying in line with the ring finger and hugging the hook of the hamate.? I then used the synovial elevator to free any adhesions from the underside of the transverse carpal ligament. Next I was able to insert the Microaire endoscopic carpal tunnel device with direct visualization of the transverse fibers on the monitor and proceeded with complete segmental retrograde release of the ligament in its entirety.? I irrigated with normal saline and closed with 4-0 monocryl for dermis and subcuticular closure. A dressing of Dermabond, 4x4, anthony, and a volar splint was applied for patient safety, security, and comfort and secured with an abhi bandage after the tourniquet was let down noting the hand was warm and well perfused. The patient was then awaken from anesthesia and transferred to the recovery room in stable condition.? Complications - none EBL- 0cc Disposition - home in stable conditions Sly Calhoun PA-C was essential for positioning, retraction, closure and dressing placement [facility] Billing Surgery - Charge Forward: Surgery Billing ([id number] for sly)
[2025-01-19 07:44] VITALS: BP 116/80; PULSE 90; RESP 16; TEMP 36.9; O2SAT 98
[2025-01-19] MEDS: LACTATED RINGERS 1,000 ML 30 ML IV CONT (07:51)
[2025-01-19] MEDS: ceFAZolin SODIUM 2 GM/20 ML SW SYRINGE IV PUSH (09:29)
[2025-01-19] MEDS: BUPivacaine HCL 0.5% 10 ML AMP INFILTRATE (09:42)
[2025-01-19] MEDS: LIDO 1%/EPINEPHRINE 1:100,000 10 ML VIAL 5 ML INFILTRATE (09:42)
[2025-01-19 09:48] VITALS: BP 119/83; PULSE 90; RESP 14; O2SAT 97
[2025-01-19 10:10] VITALS: BP 114/72; PULSE 80; RESP 16; O2SAT 98
[2025-01-19 10:25] VITALS: BP 110/80; PULSE 82; RESP 18; O2SAT 98
--- NOTE | 2025-01-19 10:43 | WPDANESPN ---
Anes - Prog Note Post-Op Date/Time: 01/19/25 10:43 Cardiovascular status: normal Respiratory status: normal Airway patency: baseline Mental status: baseline Post-Op hydration status: normal Vital Signs: Last Vital Signs Temp 36.9 C 01/19/25 07:44 Pulse 82 01/19/25 10:25 Resp 18 01/19/25 10:25 BP 110/80 01/19/25 10:25 Pulse Ox 98 01/19/25 10:25 O2 Del Method Room Air 01/19/25 10:25 Pain Score (VAS): 0 I/O: Intake & Output 01/18/25 01/19/25 01/19/25 23:59 07:59 15:59 Intake Total 0 Balance 0 Post-procedural complaints: none Patient Feedback: Patient satisfied with anesthetic care. Other Findings: Patient vital signs back to baseline. Patient denies nausea and vomiting. Patient's pain under control. Patient OK for discharge.
== END 2025-01-19 10:30 | disposition home or self-care (01) ==
PROVIDERS: PCP Family Medicine; Visit Provider Plastic Surgery
PROC: 01N54ZZ Release Median Nerve, Percutaneous Endoscopic Approach (ICD-10-PCS; CPT 29848; principal; 2025-01-19 09:00)
DX: G56.02 Carpal tunnel syndrome, left upper limb (principal)
CPT/HCPCS: 29848

== ENCOUNTER 2025-05-10 12:59 | Emergency (ER) | payer OTHER, MEDICARE, SELFPAY ==
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
[2025-05-10 13:04] VITALS: BP 143/93; PULSE 114; RESP 18; TEMP 36.6; O2SAT 97
--- NOTE | 2025-05-10 13:52 | PC.NURSE ---
repeatedly coming up to desk asking for room for patient-concerned about the cages in his back. Patient appear uncomfortable but in no acute distress. wants a stretcher to be brought to waiting room -so he can lay down-advised that this is not a viable solution. Patient wanting additional pain meds-was given Morphine DIRECTOR OF SUSTAINABILITY PROGRAMS by EMS
--- OUTSIDE RECORDS SUMMARY | 2025-05-10 14:26 | XMS_ITS | Continuity of Care Document ---
Author Organization [facility] Address [address] [place] [address] Phone Care Team Providers Care Banquet Lead Name Role Phone Jonah Noriega MD Unavailable Unavailable Advance Directives Directive Yes / No Effective Date File Name No Information Encounters Encounter Description Practice Location Reason(s) For Visit Diagnoses Date Provider Providers Copied on Encounter [facility], [address], [place], [place], [id number], tel:[phone] [facility] LUMBAR DISC DISPLACEMENT Leann Mckenzie. [address], [place], [address], [place]. tel:[phone] [facility], [address], [place], [place], [address], tel:[phone] [facility] LUMBAR PUNCTURE REACTION Leann Mckenzie. [address], [place], [place], [address], [place]. tel:[phone] Family History Family Member Type Diagnosis Age At Onset No Information Payers Payer name Insurance type Covered republican ID Authoriza tion(s) No Information Social History Type Description Quantity Date Captured Comments Sex Male Smoking Status No Information Chief Complaint And Reason For Visit No Information Reason For Referral Reason For Referral No Information History Of Present Illness Encounter Date Complaint History Of Prese nt Illness No Information Functional Status Date Functional Assessmen t No Information Instructions Date Instruction Additional Infor mation No Information Assessments Type Assessment Date No Information Patient Care Teams Name Effective Dates (start - stop) Status Members No Information
--- OUTSIDE RECORDS SUMMARY | 2025-05-10 14:26 | XMS_ITS | Continuity of Care Document ---
Author Organization [facility] Address [address] [place] [address] Phone Care Team Providers Care Matching Machine Operator Name Role Phone Dejon Alarcon MD Unavailable Unavailable Advance Directives Directive Yes / No Effective Date File Name No Information Encounters Encounter Description Practice Location Reason(s) For Visit Diagnoses Date Provider Providers Copied on Encounter [facility], [address], [id number], [place] tel:[phone] [facility] No Information 0 5 Dorian Ashford. [address], [facility] [address], [place], [place], [address] , [place]. tel:[phone] Family History Family Member Type Diagnosis Age At Onset No Information Payers Payer name Insurance type Covered libertarian ID Authoriza tion(s) No Information Social History [...]
--- OUTSIDE RECORDS SUMMARY | 2025-05-10 14:26 | XMS_ITS | Clinical Summary ---
Author Organization [facility] Care Team Providers Care Campus Dean Name Role Phone Unavailable Primary Care Provider Unavailabl e Social History Tobacco Use Types Packs/Day Years Used Date Smoking Tobacco: Never Assessed Sex and Gender Information Value Date Recorded Sex Assigned at Not on file Legal Sex Male 10:26 PM CDT Gender Identity Not on file Sexual Orientation Not on file Plan of Treatment Health Maintenance Due Date Last Done Comments Hepatitis C Virus (HCV) Screening 1974 TdaP Immunization 1974 Hepatitis B Immunization (1 of 3 - 19+ 3-dose series) 1993 Colonoscopy 2019 Colorectal Cancer Screening 2019 Influenza Immunization (#1) 2024 SARS-COV-2 Immunization ( - season) 2024 Cologuard 2024 Immunochemical Fecal Occult Blood 2024 Pneumococcal Immunization (5 0+ years) (1 of 1 - PCV) 2024 Zoster Immunization (1 of 2) 2024 Respiratory Syncytial Virus (RSV) Immunization (Adult) (1 - 1-dose 75+ series) 2049 Meningococcal Immunization (ACWY) Aged Out No longer eligible based on patient's age to complete this topic Pneumococcal Immunization Combined Aged Out No longer eligible based on patient's age to complete this topic Rotavirus Immunization Aged Out No lo nger eligible based on patient's age to complete this topic
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
[2025-05-10] MEDS: HYDROcodone/acetaminophen (*CRX) 5-325 MG TABLET 1 TAB PO (15:11)
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
[2025-05-10] MEDS: MORPHINE SULFATE (*CRX) 4 MG/ML INJ IV PUSH (17:31)
[2025-05-10] MEDS: ONDANSETRON INJ 4 MG/2 ML VIAL IV PUSH (17:31)
--- OUTSIDE RECORDS SUMMARY | 2025-05-10 17:37 | XMS_ITS | Continuity of Care Document ---
Author Organization [employer] Address [address] [place] [address] Phone Care Team Providers Care Revenue Integrity Analyst Name Role Phone Jonah Noriega MD Unavailable Unavailable Advance Directives Directive Yes / No Effective Date File Name No Information Encounters Encounter Description Practice Location Reason(s) For Visit Diagnoses Date Provider Providers Copied on Encounter [facility], [address], [place], [place], [id number], tel:[phone] [facility] LUMBAR DISC DISPLACEMENT Leann Mckenzie. [address], [place], [id number], [place]. tel:[phone] [facility], [address], [place], [place], [id number], tel:[phone] [facility] LUMBAR PUNCTURE REACTION Leann Mckenzie. [address], [place], [place], [id number], [place]. tel:[phone] Family History Family Member Type Diagnosis Age [...]
--- OUTSIDE RECORDS SUMMARY | 2025-05-10 17:37 | XMS_ITS | Continuity of Care Document ---
Author Organization [facility] Address [address] [place] [address] Phone Care Team Providers Care Cinema Operator Name Role Phone Dejon Alarcon MD Unavailable Unavailable Advance Directives Directive Yes / No Effective Date File Name No Information Encounters Encounter Description Practice Location Reason(s) For Visit Diagnoses Date Provider Providers Copied on Encounter [facility], [address], [id number], [place] tel:[phone] [facility] No Information [address] [facility] [facility], [facility] [address], [place], [place], [id number] , [place]. tel:[phone] Family History Family Member Type Diagnosis Age At Onset No Information Payers Payer name Insurance type Covered alliance party ID Authoriza tion(s) No Information Social History [...]
--- OUTSIDE RECORDS SUMMARY | 2025-05-10 17:37 | XMS_ITS | Clinical Summary ---
Author Organization [facility] Address [facility] [place] [address] Care Team Providers Care Pediatric Registered Nurse Name Role Phone Unavailable Primary Care Provider Unavailabl e Source Comments [facility],non-owned Affiliates and Associated Physician Practices is amultiple site organization consisting of ambulatory clinics and hospital sitesin [place], [place]. This disclosure is being madepursuant to the Care Everywhere program and may not contain all information available regarding this patient. Last updated 18.[facility] [employer] Medications * Be aware that medications may [...] on file Legal Sex Male 5:43 PM [employer] Gender Identity Not on file Sexual Orientation Not on file Last Filed Vital Signs Vital Sign Reading Time Taken Comments Blood Pressure 138/83 12/22/2016 10:25 AM [employer] Pulse 92 12/22/2016 10:25 AM [employer] Temperature 36.7 C (98 F) 12/22/2016 10:25 AM [employer] Respiratory Rate 17 12/11/2016 1:15 PM [employer] Oxygen Saturation 97% 12/22/2016 10:25 AM [employer] Inhaled Oxygen Concentration - - Weight 79.8 kg (176 lb) 12/22/2016 10:25 AM [employer] Height 167.6 cm (5' 6) 12/22/2016 10:25 AM [employer] Body Mass Index 28.41 12/22/2016 10:25 AM [employer] Plan of Treatment Health Maintenance Due Date [...]
--- OUTSIDE RECORDS SUMMARY | 2025-05-10 17:37 | XMS_ITS | Clinical Summary ---
Author Organization [facility] Care Team Providers Care Cigarette Package Examiner Name Role Phone Unavailable Primary Care Provider [...]
== END 2025-05-10 18:21 | disposition home or self-care (01) ==
PROVIDERS: Emergency Provider Emergency Medicine; PCP Family Medicine
DX: M25.552 Pain in left hip (principal); M25.562 Pain in left knee; V59.49XA Driver of pick-up truck or van injured in collision with other motor vehicles in traffic accident, initial encounter; I10 Essential (primary) hypertension; K21.9 Gastro-esophageal reflux disease without esophagitis; G47.33 Obstructive sleep apnea (adult) (pediatric); Z87.891 Personal history of nicotine dependence; G89.29 Other chronic pain
CPT/HCPCS: 72131; 73030; 73564; 74176; 96374; 96375; 99284; A9270; J2270; J2405